=== PATIENT | female | born 1970 | race Caucasian/White ===

== ENCOUNTER 2023-07-12 18:35 | Emergency (ER) | payer OTHER ==
[~2023-07-12] VITALS: Ht 165.1 cm; Wt 68.2 kg
[2023-07-12 18:39] VITALS: TEMP 98.2
[2023-07-12 18:54] LABS: COVID AG,FIA SOURCE NASAL SWAB
[2023-07-12 19:13] LABS: SARS-COV2 (COVID) ANTIGEN,FIA Negative (Negative)
[2023-07-12 19:14] LABS: INFLUENZA TYPE A NEGATIVE FOR TYPE A (NEGATIVE); INFLUENZA TYPE B NEGATIVE FOR TYPE B (NEGATIVE)
[2023-07-12] MEDS ORDERED: IPRATROPIUM BROMIDE 0.5 MG/2.5 ML NEB SOLUTION NEB ONE (19:45)
[2023-07-12] MEDS ORDERED: ALBUTEROL SULFATE 2.5 MG/0.5 ML NEB SOLUTION NEB ONE (19:45)
[2023-07-12 19:48] VITALS: PULSE 103; RESP 24; O2SAT 97
[2023-07-12 20:03] VITALS: PULSE 114; RESP 20; O2SAT 99
[2023-07-12] MEDS ORDERED: MethylPREDNISolone SOD SUCC 125 MG/2 ML VIAL IVP ONE (21:15)
[2023-07-12 21:24] LABS: BASOPHILS % (AUTO) 0.2 % (0.0-2.0); EOSINOPHILS % (AUTO) 0.2 % (1.0-6.0); HEMATOCRIT 37.5 % (36-46); HEMOGLOBIN 12.3 g/dL (12.0-16.0); LYMPHOCYTES % (AUTO) 23.4 % (22.0-44.0); MEAN CORPUSCULAR HEMOGLOBIN 29.7 pg (26.0-34.0); MEAN CORPUSCULAR HGB CONC 32.9 G/dL (31.0-37.0); MEAN CORPUSCULAR VOLUME 90 fL (80-100); MONOCYTES # (AUTO) 0.9 K/uL (0.1-1.0); MONOCYTES % (AUTO) 7.2 % (2.0-9.0); NEUTROPHILS # (AUTO) 8.8 K/uL (1.8-7.7); PLATELET COUNT (AUTO) 339 K/uL (150-450); RED BLOOD CELL COUNT(AUTO) 4.15 MIL/uL (4.00-5.20); RED CELL DISTRIBUTION WIDTH 14.1 % (11.5-14.5); WHITE BLOOD COUNT (AUTO) 12.7 K/uL (4.5-11.0)
[2023-07-12 21:31] LABS: ANION GAP 14 mmol/L (8-16); CALCIUM, TOTAL 9.6 mg/dL (8.8-10.5); CARBON DIOXIDE 25 mmol/L (22-29); CHLORIDE 101 mmol/L (98-107); CREATININE 0.84 mg/dL (0.60-1.30); GLOMERULAR FILTR. RATE CALC > 60 mL/min (>60); GLUCOSE,RANDOM 157 mg/dL (70-110); POTASSIUM 3.5 mmol/L (3.5-5.1); SODIUM SERUM 140 mmol/L (136-145); UREA NITROGEN, BLOOD 8 mg/dL (7-18)
[2023-07-12 21:37] LABS: ALANINE AMINOTRANSFERASE 18 U/L (12-78); ALBUMIN 3.7 g/dL (3.4-5.0); ALKALINE PHOSPHATASE 139 U/L (46-116); ASPARTATE AMINOTRANSFERASE 27 U/L (15-37); BILIRUBIN,TOTAL 0.4 mg/dL (0.1-1.0); TOTAL PROTEIN, SERUM 8.4 g/dL (6.4-8.2)
[2023-07-12 21:39] LABS: TROPONIN I-HIGH SENSITIVITY Less Than 4 ng/L (<51)
[2023-07-12] MEDS ORDERED: IOHEXOL 350 MG/ML 100 ML VIAL ONE (21:53)
[2023-07-12] MEDS ORDERED: SODIUM CHLORIDE 0.9% 100 ML ONE (21:53)
[2023-07-12 22:13] LABS: PROTHROMBIN TIME 10.8 SEC (9.4-11.6)
[2023-07-12 22:30] VITALS: BP 148/99; PULSE 98; RESP 18
[2023-07-12] MEDS ORDERED: LORazepam 2 MG/ML VIAL IVP ONE (23:00)
[2023-07-12] MEDS ORDERED: LORA-1000 PO (23:28)
[2023-07-12] MEDS ORDERED: ALBU18HF12 IH (23:28)
== END 2023-07-13 00:35 | disposition home or self-care (01) ==
LOC: EMS 18:37
DX: C34.90 Malignant neoplasm of unspecified part of unspecified bronchus or lung (principal); F41.9 Anxiety disorder, unspecified; Z90.49 Acquired absence of other specified parts of digestive tract; Z98.890 Other specified postprocedural states; Z91.011 Allergy to milk products; Z20.822 Contact with and (suspected) exposure to COVID-19
CPT/HCPCS: 99285; 71260; 96374; 71045; 96375; 87426; 80053; 84484; 85025; 85610; 87804; 36415; 94640; 72193; 74160; 93005; J2060; J2930; Q9967; J7050; J7613